=== PATIENT | female | born 1965 | race Caucasian/White ===

== ENCOUNTER 2019-12-31 14:32 | Emergency (ER) | payer BC ==
--- NOTE | 2019-12-31 15:16 | TELE ---
HPI Do you have fever,cough or shortness of breath?: No - General Reason For Visit: COVID 19 TEST History Source: Patient Exam Limitations: No Limitations - History of Present Illness 12/31/19 15:14 54-year-old female no past medical history requesting covid testing. Reports negative COVID test 5 days ago at [facility]. 14-year-old son came in contact with possible COVID positive person and hockey team is requesting family to be re tested. Denies any symptoms such as cough, fever, chills, shortness of breath, abdominal pain. Speaking full sentences - Medical Decision Making 12/31/19 15:15 54-year-old female no past medical history requesting covid testing. Reports negative COVID test 5 days ago at [facility]. 14-year-old son came in contact with possible COVID positive person and hockey team is requesting family to be re tested. Denies any symptoms such as cough, fever, chills, shortness of breath, abdominal pain. COVID test ordered Discharge Diagnosis at time of Disposition: Suspected COVID-19 virus infection - Referrals Follow-up Referral(s): Priti Tariq MD [Primary Care Provider] - - Patient Instructions - Discharge Disposition: HOME
== END 2019-12-31 16:00 | disposition home or self-care (01) ==
LOC: JVIRT 14:32
DX: Z11.59 Encounter for screening for other viral diseases (principal)
CPT/HCPCS: Q3014-GT; U0003

== ENCOUNTER 2020-04-07 14:11 | Emergency (ER) | payer BC | END 2020-04-07 14:53 | disposition home or self-care (01) | LOC: JVIRT 14:11 | DX: Z11.59 Encounter for screening for other viral diseases (principal) | CPT/HCPCS: C9803; Q3014-GT; U0003 ==

== ENCOUNTER 2023-02-12 20:33 | Emergency (ER) | payer BC ==
[2023-02-12] MEDS ORDERED: AMOX TR/POT CLAV 500MG/125MG TABLETS (FP) PO ONE (20:37)
[2023-02-12] MEDS ORDERED: DIPHTH,PERTUSS(ACELL),TET 0.5 ML DISP.SYRIN IM ONE ×2 (20:44→20:50)
[2023-02-12] MEDS ORDERED: AMOX TR/POT CLAV 500MG/125MG TABLETS (FP) ONE (20:50)
[2023-02-12 21:02] VITALS: BP 108/76; PULSE 65; RESP 18; TEMP 98.2; BMI 20.7
== END 2023-02-12 21:05 | disposition home or self-care (01) ==
LOC: FER 20:33
PROC: 3E0234Z Introduction of Serum, Toxoid and Vaccine into Muscle, Percutaneous Approach (ICD-10-PCS; principal; 2023-02-12)
DX: S41.152A Open bite of left upper arm, initial encounter (principal); W54.0XXA Bitten by dog, initial encounter
CPT/HCPCS: 90715; 99283-25